=== PATIENT | female | born 1960 | race Caucasian/White ===

== ENCOUNTER 2025-07-30 12:12 | Emergency (ER) | payer OTHER, SELFPAY ==
[2025-07-30 12:15] VITALS: BP 176/95
[2025-07-30 12:38] LABS: Hematocrit 37.8 % (37.0-47.0); Hemoglobin 12.2 g/dL (12.0-16.0); Mean Corp Hgb Conc. 32.3 g/dL (33.0-37.0); Mean Corpuscular Volume 89.6 fL (81.0-99.0); Nucleated Red Blood Cells % 0 %; Platelet Count 264 10^3/uL (130-400); Red Cell Dist. Width 13.2 % (11.5-14.5)
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
[2025-07-30 12:55] LABS: ALT (SGPT) 55 U/L (0-35); AST (SGOT) 32 U/L (14-36); Albumin 4.9 g/dl (3.5-5.0); Alkaline Phosphatase 76 U/L (38-126); Blood Urea Nitrogen 8 mg/dl (7-17); Calcium 9.8 mg/dl (8.4-10.2); Carbon Dioxide 29 mmol/L (22-30); Chloride 104 mmol/L (98-107); Glucose 115 mg/dl (70-99); Potassium 4.0 mmol/L (3.5-5.1); Sodium 139 mmol/L (135-145); Total Protein 8.1 g/dl (6.3-8.2); eGFR > 60.00
[2025-08-02 14:50] LABS: Lyme Antibody Screen, EIA Negative (Negative)
== END 2025-07-30 14:52 | disposition home or self-care (01) ==
LOC: EMR 12:12
PROVIDERS: Student in an Organized Health Care Education/Training Program; EMERGENCY PHYSICIAN Emergency Medicine; FAMILY PHYSICIAN Family Medicine
DX: M62.838 Other muscle spasm (principal)
CPT/HCPCS: 99284; 20552; 70450; 80053; 85025; 86618